=== PATIENT | female | born 1965 | race Caucasian/White ===

== ENCOUNTER 2017-01-05 15:56 | Emergency (ER) | payer MEDICARE, MEDICAID ==
--- NOTE | 2017-01-05 16:13 | UC ---
Back Pain HPI - HPI Summary HPI Summary: 51 y/o female present to the urgent care c/o lower back pain after helping her daughter moving some furniture 3 weeks ago. Pain is 9/10 when she walks or lays down. Pain radiates to left hip. She has taken ibuprofen to alleviate symptoms. But after long walks pain returns. Pt denies numbness or tingling over the lower extremities, fever, urinary symptoms, saddle anesthesia, chest pain, N/V/D . - History of Current Complaint Chief Complaint: UCBackPain Stated Complaint: LOWER BACK,LEFT HIP PAIN Time Seen by Provider: 01/05/17 16:12 Hx Obtained From: Patient Hx Last Menstrual Period: 6 years ago ?: No Onset/Duration: Gradual Onset, Lasting Weeks, Still Present Timing: Lasting Hours Severity Initially: Moderate Severity Currently: Severe Pain Intensity: 9 Pain Scale Used: 0-10 Numeric Back Pain: Is Discrete @ - at lower back radiating ro the left hip Character: Sharp Aggravating: Lifting, Bending, Walking Alleviating: Rest Associated Signs And Symptoms: Positive: Negative. Negative: Swelling, Redness , Bruising, Fever, Weakness, Numbness, Tingling, Abdominal Pain, Flank Pain, Bladder Incontinence, Bowel Incontinence - Risk Factors AAA Risk Factors: Negative TAD Risk Factors: Negative Cauda Equina Risk Factors: Negative Epidural Abscess Risk Factors: Negative - Allergies/Home Medications Allergies/Adverse Reactions: Allergies Allergy/AdvReac Type Severity Reaction Status Date / Time Clopidogrel [From Plavix] Allergy See Comment Verified 01/05/17 16:01 Hydrochlorothiazide Allergy Hives Verified 01/05/17 16:01 Ketorolac Tromethamine Allergy Hives Verified 01/05/17 16:01 [From Toradol] Home Medications: Home Medications Ibuprofen TAB* [Advil TAB*] 400 mg PO Q6H PRN 01/05/17 [History Confirmed ] PMH/Surg Hx/FS Hx/Imm Hx Endocrine History: Diabetes, Dyslipidemia Cardiovascular History: Cardiac Disease, Hypertension - Surgical History Surgical History: Yes Surgery Procedure, Year, and Place: Cardiac Stent x1 03/2015, [place]; csection x3; pins right ankle - Family History Known Family History: Positive: Cardiac Disease, Hypertension, Diabetes - Social History Occupation: Unemployed Lives: With Family Alcohol Use: Occasionally Substance Use Type: None Smoking Status (MU): Heavy Every Day Tobacco Smoker Amount Used/How Often: 1.5 PPD Length of Time of Smoking/Using Tobacco: started smoking age 22 Review of Systems Constitutional: Negative Skin: Negative Eyes: Negative ENT: Negative Respiratory: Negative Cardiovascular: Negative Gastrointestinal: Negative Genitourinary: Negative Motor: Negative Neurovascular: Negative Musculoskeletal: Other: - lower back pain Neurological: Negative Psychological: Negative All Other Systems Reviewed And Are Negative: Yes Physical Exam Triage Information Reviewed: Yes Completion Of Physical Exam Limited Due To: Extremis Appearance: No Pain Distress, Well-Nourished, Obese Vital Signs: Initial Vital Signs Temp 99.2 F 01/05/17 16:02 Pulse 84 01/05/17 16:02 Resp 16 01/05/17 16:02 BP 120/80 01/05/17 16:02 Pulse Ox 99 01/05/17 16:02 Vital Signs Reviewed: Yes Eye Exam: Normal Eyes: Positive: Conjunctiva Clear - PERRLA, EOMI, fundi grossly normal ENT Exam: Normal ENT: Positive: Normal ENT inspection, Hearing grossly normal, Pharynx normal, TMs normal Dental Exam: Normal Neck exam: Normal Neck: Positive: Supple, Nontender, No Lymphadenopathy Respiratory Exam: Normal Respiratory: Positive: Chest non-tender, Lungs clear, Normal breath sounds Cardiovascular Exam: Normal Cardiovascular: Positive: RRR, No Murmur, Pulses Normal, Brisk Capillary Refill Abdominal Exam: Normal Abdomen Description: Positive: Nontender, No Organomegaly, Soft. Negative: CVA Tenderness (R), CVA Tenderness (L) Bowel Sounds: Positive: Present Musculoskeletal Exam: Normal Neurological Exam: Normal Psychological Exam: Normal Skin Exam: Normal - BACK: Patient walked into the urgent care room with limpig ambulation, able to bear weight. No signs of trauma, No masses palpated. Point tenderness at the level of L5-S1, left side paraspinal muscle tenderness w/ spasm, No CVAT, no flank ecchymosis . No sacroiliac notch tenderness, No saddle anesthesia.limited ROM due to pain. Unable to perform leg raise aince pt states she can't lay down. Patellar reflexes: brisk, symmetric Muscle strength lower extremities WNL, Pulses WNL Back Pain Course/Dx - Course Course Of Treatment: 51 y/o female present to the urgent care c/o lower back pain after helping her daughter moving some furniture 3 weeks ago. Pain is 9/ 10 when she walks or lays down. Pain radiates to left hip. She has taken ibuprofen to alleviate symptoms. But after long walks pain returns. Pt denies numbness or tingling over the lower extremities, fever, urinary symptoms, saddle anesthesia, chest pain, N/V/D. Hx obtained. Lumbosacral X-ray ordered, result negative. Pt given Ibuprofen 800mg PO at the clinic. Pt's pain improved. Pt Rx Naproxen and Flexeril PO to alleviate symptoms. Advised to wear back support, rest and avoid strenuous exercise or heavy lifting. PT referral given. If symptons do not resolve to f/u with PCP in 1 weeks for further treatment. Pt understood and agreed. Pt left the clinic ambulating A&OX3. . - Differential Dx/Diagnosis Differential Diagnosis/HQI/PQRI: Fracture, Herniated Disc, Renal Colic, Strain, Sprain Provider Diagnoses: 1- acute lower back pain with back spasm Discharge - Discharge Plan Condition: Stable Disposition: HOME Prescriptions: Cyclobenzaprine TAB* [Flexeril 10 MG TAB*] 10 mg PO TID PRN #15 tab PRN Reason: Spasms - Back Naproxen TAB* [Naprosyn 250 mg TAB*] 500 mg PO Q8H PRN #30 tab PRN Reason: Pain Patient Education Materials: Acute Low Back Pain (ED) Referrals: ALISHA Lemon [Primary Care Provider] - 1 Week Additional Instructions: Please take Naproxen PO after meals for pain, Take flexeril PO for back spasm. Wear a back support, rest, avoid heavy lifting and strenuous exercise. F/u PT referral for further evaluation and treatment. If symptoms do not improve or worsen please f/u with your PCP in 1 week for further treatment.
[2017-01-05] MEDS ORDERED: Ibuprofen TAB* 400 MG PO ONE (17:46)
[2017-01-05 17:57] VITALS: BP 131/89
--- NOTE | 2017-01-05 18:11 | RAD ---
Indication: Low back pain. 5 views of the lumbar spine demonstrate vertebral bodies to be normal in height. Disc spaces are well-preserved. Pedicles appear intact. IMPRESSION: No fracture of the lumbar spine.
== END 2017-01-05 18:28 | disposition home or self-care (01) ==
LOC: UCCORT 15:56
DX: M54.5 Low back pain (principal); M62.830 Muscle spasm of back; M25.552 Pain in left hip; E11.9 Type 2 diabetes mellitus without complications; E78.5 Hyperlipidemia, unspecified; I51.9 Heart disease, unspecified; I10 Essential (primary) hypertension; E66.9 Obesity, unspecified; Z95.5 Presence of coronary angioplasty implant and graft; F17.210 Nicotine dependence, cigarettes, uncomplicated
CPT/HCPCS: 72110; 99212; A9270-GY; G0463

== ENCOUNTER 2018-05-05 21:35 | Emergency (ER) | payer MEDICARE, MEDICAID ==
[2018-05-05 21:47] VITALS: BP 148/98
--- NOTE | 2018-05-05 21:57 | UC ---
Ear Complaint HPI - HPI Summary HPI Summary: c/o decreased hearing and slight pain right ear had ears flushed 2 weeks ago - History of Current Complaint Chief Complaint: UCEar Stated Complaint: BILATERAL EAR COMPLAINT Time Seen by Provider: 05/05/18 21:41 Hx Obtained From: Patient Hx Last Menstrual Period: none Onset/Duration: Gradual Onset, Lasting Weeks Severity Initially: Mild Severity Currently: Mild Pain Intensity: 1 Pain Scale Used: 0-10 Numeric Aggravating Factors: Nothing Alleviating Factors: Nothing Associated Signs/Symptoms: Positive: Hearing Loss - Allergies/Home Medications Allergies/Adverse Reactions: Allergies Allergy/AdvReac Type Severity Reaction Status Date / Time clopidogrel [From Plavix] Allergy Intermediate See Comment Verified 05/05/18 21: 43 hydrochlorothiazide Allergy Intermediate Hives Verified 05/05/18 21:43 ketorolac [From Toradol] Allergy Hives Verified 05/05/18 21:43 Home Medications: Home Medications Cephalexin CAP* [Keflex CAP*] 500 mg PO TID 05/05/18 [History Confirmed 05/05/18 ] Cimetidine 400 mg PO BID 05/05/18 [History Confirmed 05/05/18] predniSONE TAB* [Deltasone 1 MG TAB*] 1 mg PO DAILY 05/05/18 [History Confirmed 05/05/18] PMH/Surg Hx/FS Hx/Imm Hx Previously Healthy: Yes Endocrine History: Diabetes, Dyslipidemia Cardiovascular History: Cardiac Disease, Hypertension - Surgical History Surgical History: Yes Surgery Procedure, Year, and Place: Cardiac Stent x1 03/2015, [place]; csection x3; pins right ankle - Family History Known Family History: Positive: Cardiac Disease, Hypertension, Diabetes - Social History Alcohol Use: Rare Substance Use Type: None Smoking Status (MU): Heavy Every Day Tobacco Smoker Type: Cigarettes Amount Used/How Often: 1.5 PPD Length of Time of Smoking/Using Tobacco: started smoking age 22 Review of Systems All Other Systems Reviewed And Are Negative: Yes Constitutional: Positive: Negative Skin: Positive: Negative Eyes: Positive: Negative ENT: Positive: Ear Ache, Other - decreased hearing right ear Respiratory: Positive: Negative Cardiovascular: Positive: Negative Gastrointestinal: Positive: Negative Genitourinary: Positive: Negative Motor: Positive: Negative Neurovascular: Positive: Negative Musculoskeletal: Positive: Negative Neurological: Positive: Negative Psychological: Positive: Negative Physical Exam Triage Information Reviewed: Yes Appearance: Well-Appearing, No Pain Distress, Well-Nourished Vital Signs: Initial Vital Signs Temp 97.6 F 05/05/18 21:40 Pulse 97 05/05/18 21:40 Resp 16 05/05/18 21:40 BP 148/98 05/05/18 21:40 Pulse Ox 97 05/05/18 21:40 Eyes: Positive: Conjunctiva Clear ENT: Positive: TMs normal - unable to vis right TM due to wax. Negative: Hearing grossly normal, Trismus, Muffled voice, Hoarse voice Neck: Positive: Supple, Nontender, No Lymphadenopathy Respiratory: Positive: Lungs clear, Normal breath sounds, No respiratory distress, No accessory muscle use Cardiovascular: Positive: RRR, No Murmur Musculoskeletal: Positive: No Edema Neurological: Positive: Alert Psychological Exam: Normal Re-Evaluation - Re-Evaluation First Eval Re-Evaluation Time: 22:06 Change: Improved Comment: hearing back to normal, TM normal Ear Complaint Course/Dx - Differential Dx/Diagnosis Provider Diagnosis: Impacted cerumen of right ear Discharge - Sign-Out/Discharge Documenting (check all that apply): Patient Departure All imaging exams completed and their final reports reviewed: No Studies - Discharge Plan Condition: Stable Disposition: HOME Patient Education Materials: Cerumen Impaction (ED) Referrals: Belkis Muñoz MD [Primary Care Provider] - If Needed - Billing Disposition and Condition Condition: STABLE Disposition: Home
== END 2018-05-05 22:10 | disposition home or self-care (01) ==
LOC: UCCORT 21:35
DX: H61.21 Impacted cerumen, right ear (principal); Z88.8 Allergy status to other drugs, medicaments and biological substances; E11.9 Type 2 diabetes mellitus without complications; I10 Essential (primary) hypertension; F17.210 Nicotine dependence, cigarettes, uncomplicated
CPT/HCPCS: 99212; G0463